=== PATIENT | female | born 1965 | race Caucasian/White ===

== ENCOUNTER → 2016-11-29 | Outpatient (CLI) | payer OTHER ==
--- NOTE | 2016-12-02 07:27 | MM ---
Reason for exam: history of breast cancer, mastectomy. Last mammogram was performed 1 year ago. History: Patient is postmenopausal and has history of breast cancer at age 46. Breast lift of the left breast, 2011. Reconstruction of the right breast, 2011. Chemotherapy, 2011. Radiation therapy, 2011. Mastectomy of the right breast, July 30, 2011. Taking antineoplastic for 4 years beginning at age 46. Physical Findings: Nurse did not find any significant physical abnormalities on exam. MG Diagnostic Mammo LT w CAD CC and MLO view(s) were taken of the left breast. Prior study comparison: November 27, 2015, left breast MG 3d diag mammo w/cad LT. November 25, 2014, left breast MG diagnostic mammo LT w CAD. The breast tissue is heterogeneously dense. This may lower the sensitivity of mammography. No suspicious calcifications are seen. No significant new findings when compared with previous films. These results were verbally communicated with the patient and result sheet given to the patient on 11/29/16. ASSESSMENT: Benign, BI-RAD 2 RECOMMENDATION: Follow-up diagnostic mammogram of the left breast in 1 year.
== END | disposition home or self-care (01) ==
LOC: RADMAMWWP 15:18
PROVIDERS: ATTEND Internal Medicine Hematology & Oncology
DX: Z08 Encounter for follow-up examination after completed treatment for malignant neoplasm (principal); Z85.3 Personal history of malignant neoplasm of breast

== ENCOUNTER → 2017-12-16 | Outpatient (CLI) | payer OTHER ==
--- NOTE | 2017-12-16 09:56 | MM ---
Reason for exam: additional evaluation requested from prior study. Last mammogram was performed 1 year and 1 month ago. History: Patient is postmenopausal and has history of breast cancer at age 46. Breast lift of the left breast, 2011. Reconstruction of the right breast, 2011. Chemotherapy, 2011. Radiation therapy, 2011. Mastectomy of the right breast, July 30, 2011. Took antineoplastic for 5 years beginning at age 46. Physical Findings: Nurse did not find any significant physical abnormalities on exam. MG Diagnostic Mammo LT w CAD CC, MLO, spot compression CC, and ML view(s) were taken of the left breast. Prior study comparison: November 29, 2016, left breast MG diagnostic mammo LT w CAD. November 27, 2015, left breast MG 3d diag mammo w/cad LT. The breast tissue is extremely dense which could obscure a lesion on mammography. Focal asymmetry disperses with compression. No significant new findings when compared with previous films. These results were verbally communicated with the patient and result sheet given to the patient on 12/16/17. ASSESSMENT: Benign, BI-RAD 2 RECOMMENDATION: Routine screening mammogram of the left breast in 1 year.
--- NOTE | 2017-12-16 22:41 | BD ---
EXAMINATION TYPE: MG DEXA axial skeleton. DATE OF EXAM: 12/16/2017 COMPARISON: NONE CLINICAL HISTORY: 52-year-old female postmenopausal screening with HRT Height: 66 IN Weight: 144 LBS FRAX RISK QUESTIONS: Alcohol (3 or more units per day): NO Family History (Parent hip fracture): NO Glucocorticoids (More than 3mos): NO (Ex: prednisone, prednisolone, methylprednisolone, dexamethasone, and hydrocortisone). History of Fracture in Adulthood: NO Secondary Osteoporosis: 1. Type 1 Diabetes: NO 2. Hyperthyroidism: NO 3. Menopause before 45: NO 4. Malnutrition: NO 5. Chronic liver disease: NO Rheumatoid Arthritis: NO Current Tobacco Use: YES RISK FACTORS HISTORY OF: History of Wrist Fracture: ANNE When: EARLY TWENTIES Active: YES Postmenopausal woman: AGE 47 MEDICATIONS: Additional Medications: VIT D3, XANAX, LETROZOLE Additional History: BREAST CANCER WITH CHEMO AND RADIATION EXAM MEASUREMENTS: Bone mineral densitometry was performed using the [employer] System. Bone mineral density as measured about the Lumbar spine is: ----- L1-L4(G/cm2): 0.975 T Score Values are as follows: ----- L2: -1.8 ----- L3: -1.2 ----- L4: -2.1 ----- L1-L4: -1.7 Bone mineral density BASELINE Bone mineral density about the R hip (g/cm2): 0.826 Bone mineral density about the L hip (g/cm2): 0.797 T Score values are as follows: -----R Neck: -1.5 -----L Neck: -1.7 -----R Total: -1.6 -----L Total: -1.7 Bone mineral density BASELINE IMPRESSION: Osteopenia (T Score between -2.5 and -1). There is slightly increased risk of fracture and the patient may be considered for treatment. Re-Screen 2-5 years. NOTE: T-SCORE=SD OF THE YOUNG ADULT MEAN.
== END | disposition home or self-care (01) ==
LOC: RADBDWWP 07:56
PROVIDERS: ATTEND Internal Medicine Hematology & Oncology
DX: Z08 Encounter for follow-up examination after completed treatment for malignant neoplasm (principal); M85.80 Other specified disorders of bone density and structure, unspecified site; N95.1 Menopausal and female climacteric states; Z85.3 Personal history of malignant neoplasm of breast
CPT/HCPCS: 77065; 77080

== ENCOUNTER → 2018-12-17 | Outpatient (CLI) | payer BC ==
--- NOTE | 2018-12-17 14:50 | MM ---
Reason for exam: additional evaluation requested from prior study. Last mammogram was performed 1 year ago. History: Patient is postmenopausal and has history of breast cancer at age 46. Breast lift of the left breast, 2011. Reconstruction of the right breast, 2011. Chemotherapy, 2011. Radiation therapy, 2011. Mastectomy of the right breast, July 30, 2011. Took antineoplastic for 5 years beginning at age 46. Physical Findings: Nurse did not find any significant physical abnormalities on exam. MG Diagnostic Mammo LT w CAD CC and MLO view(s) were taken of the left breast. Prior study comparison: December 16, 2017, left breast MG diagnostic mammo LT w CAD. November 29, 2016, left breast MG diagnostic mammo LT w CAD. The breast tissue is heterogeneously dense. This may lower the sensitivity of mammography. There are benign appearing round calcifications in the left breast. There is no discrete abnormality. These results were verbally communicated with the patient and result sheet given to the patient on 12/17/18. ASSESSMENT: Benign, BI-RAD 2 RECOMMENDATION: Follow-up diagnostic mammogram of the left breast in 1 year.
--- NOTE | 2018-12-17 15:46 | BD ---
EXAMINATION TYPE: Axial Bone Density DATE OF EXAM: 12/17/2018 COMPARISON: DEXA bone scan 2017 CLINICAL HISTORY: Postmenopausal female Height: 66 Weight: 139.1 FRAX RISK QUESTIONS: Alcohol (3 or more units per day): no Family History (Parent hip fracture): no Glucocorticoids (More than 3mos): no (Ex: prednisone, prednisolone, methylprednisolone, dexamethasone, and hydrocortisone). History of Fracture in Adulthood: yes Secondary Osteoporosis: 1. Type 1 Diabetes: no 2. Hyperthyroidism: no 3. Menopause before 45: yes 4. Malnutrition: no 5. Chronic liver disease: no Rheumatoid Arthritis: no Current Tobacco Use: yes RISK FACTORS HISTORY OF: Family History of Osteoporosis: no Active: yes Diet low in dairy products/other sources of calcium: yes Postmenopausal woman: age 46 Lost more than 2 inches in height since high school: no MEDICATIONS: xanax, narco, letrozole Additional History: pt had breast cancer at age 46/ chemo-radiation EXAM MEASUREMENTS: Bone mineral densitometry was performed using the [employer] System. Bone mineral density as measured about the Lumbar spine is: ----- L1-L4(G/cm2): 0.945 T Score Values are as follows: ----- L2: -2.0 ----- L3: -1.7 ----- L4: -2.2 ----- L1-L4: -2.0 Bone mineral density has: decreased -3.5 % since study of: 12.16.2017 Bone mineral density about the R hip (g/cm2): 0.746 Bone mineral density about the L hip (g/cm2): 0.791 T Score values are as follows: -----R Neck: -2.1 -----L Neck: -1.8 -----R Total: -2.0 -----L Total: -1.7 Bone mineral density has: decreased -3.9 % since study of: 12.16.2017 IMPRESSION: Osteopenia (T Score between -2.5 and -1) remains present low back and both hips.. There remains slightly increased risk of fracture and the patient may be considered for treatment. Re-Screen 2-5 years. NOTE: T-SCORE=SD OF THE YOUNG ADULT MEAN.
== END | disposition home or self-care (01) ==
LOC: RADMAMWWP 13:19
PROVIDERS: ATTEND Internal Medicine Hematology & Oncology
DX: Z08 Encounter for follow-up examination after completed treatment for malignant neoplasm (principal); M85.852 Other specified disorders of bone density and structure, left thigh; M85.851 Other specified disorders of bone density and structure, right thigh; M85.88 Other specified disorders of bone density and structure, other site; Z85.3 Personal history of malignant neoplasm of breast; Z90.11 Acquired absence of right breast and nipple
CPT/HCPCS: 77065; 77080

== ENCOUNTER → 2020-04-12 | Outpatient (CLI) | payer MEDICARE ==
--- NOTE | 2020-04-12 13:52 | MM ---
Reason for exam: additional evaluation requested from prior study. Last mammogram was performed 1 year and 4 months ago. History: Patient is postmenopausal and has history of breast cancer at age 46. Implant in the right breast, 2011. Breast lift of the left breast, 2011. Reconstruction of the right breast, 2011. Chemotherapy, 2011. Radiation therapy, 2011. Mastectomy of the right breast, July 30, 2011. Taking antineoplastic for 5 years beginning at age 46. Physical Findings: Nurse did not find any significant physical abnormalities on exam. MG Diagnostic Mammo LT w CAD CC and MLO view(s) were taken of the left breast. Prior study comparison: December 17, 2018, left breast MG diagnostic mammo LT w CAD. December 16, 2017, left breast MG diagnostic mammo LT w CAD. The breast tissue is heterogeneously dense. This may lower the sensitivity of mammography. No significant new findings when compared with previous films. These results were verbally communicated with the patient and result sheet given to the patient on 04/12/20. ASSESSMENT: Benign, BI-RAD 2 RECOMMENDATION: Follow-up diagnostic mammogram of the left breast in 1 year.
== END | disposition home or self-care (01) ==
LOC: RADMAMWWP 12:36
PROVIDERS: ATTEND Internal Medicine Hematology & Oncology
DX: Z08 Encounter for follow-up examination after completed treatment for malignant neoplasm (principal); Z85.3 Personal history of malignant neoplasm of breast
CPT/HCPCS: 77065

== ENCOUNTER → 2021-05-14 | Outpatient (CLI) | payer MEDICARE ==
--- NOTE | 2021-05-15 14:38 | MM ---
Reason for exam: additional evaluation requested from prior study. Last mammogram was performed 1 year and 1 month ago. History: Patient is postmenopausal and has history of breast cancer at age 46. Implant in the right breast, 2011. Breast lift of the left breast, 2011. Reconstruction of the right breast, 2011. Chemotherapy, 2011. Radiation therapy, 2011. Mastectomy of the right breast, July 30, 2011. Taking antineoplastic for 5 years beginning at age 46. Physical Findings: Nurse did not find any significant physical abnormalities on exam. MG Diagnostic Mammo LT w CAD CC and MLO view(s) were taken of the left breast. Prior study comparison: April 12, 2020, left breast MG diagnostic mammo LT w CAD. December 17, 2018, left breast MG diagnostic mammo LT w CAD. The breast tissue is extremely dense which could obscure a lesion on mammography. No significant new findings when compared with previous films. These results were verbally communicated with the patient and result sheet given to the patient on 05/14/21. ASSESSMENT: Benign, BI-RAD 2 RECOMMENDATION: Follow-up diagnostic mammogram of the left breast in 1 year.
== END | disposition home or self-care (01) ==
LOC: RADMAMWWP 14:35
PROVIDERS: ATTEND Internal Medicine Hematology & Oncology
DX: Z08 Encounter for follow-up examination after completed treatment for malignant neoplasm (principal); Z85.3 Personal history of malignant neoplasm of breast
CPT/HCPCS: 77065

== ENCOUNTER → 2021-07-30 | Outpatient (CLI) | payer BC ==
--- NOTE | 2021-07-30 12:46 | XR ---
EXAMINATION TYPE: XR foot complete RT DATE OF EXAM: 07/30/2021 COMPARISON: None HISTORY: Right foot pain TECHNIQUE: 3 view right foot FINDINGS: No acute fractures or dislocations are evident. Joint spaces are preserved. Alignment appea rs normal. Soft tissues are unremarkable. Follow up exams can be performed 7-10 days from acute trauma for continued pain IMPRESSION: 1. No acute osseous abnormality.
== END | disposition home or self-care (01) ==
LOC: RADXRYALE 11:17
PROVIDERS: ATTEND Internal Medicine
DX: M79.671 Pain in right foot (principal)

== ENCOUNTER → 2022-03-12 | Outpatient (CLI) | payer BC ==
--- NOTE | 2022-03-12 12:29 | XR ---
EXAMINATION TYPE: XR lumbosacral spine min 4V DATE OF EXAM: 03/12/2022 COMPARISON: CT dated 02/21/2010 INDICATION: Low back pain TECHNIQUE: 5 views of the lumbar spine. FINDINGS: Diffuse osteopenia. Anterolisthesis of L1 over L2 and L2 over L3. No definite vertebral body collapse or acute displaced fracture. Tiny multilevel opposing endplate osteophytosis denoting degenerative changes. Slightly degenerated L 5-S1 disc. Mild degenerative changes of the left sacroiliac joint. Arterial atherosclerotic calcifications. IMPRESSION: Degenerative changes as noted above. Further MRI assessment can be considered.
== END | disposition home or self-care (01) ==
LOC: RADXRYALE 11:27
PROVIDERS: ATTEND Internal Medicine
DX: M51.36 Other intervertebral disc degeneration, lumbar region (principal)
CPT/HCPCS: 72110

== ENCOUNTER 2022-03-13 10:00 | Emergency (ER) | payer BC ==
[2022-03-13 10:04] VITALS: TEMP 98.1
[2022-03-13] MEDS ORDERED: MORPHINE SULFATE 2 MG/ML SYRINGE IM STA (10:09)
--- NOTE | 2022-03-13 10:09 | ED ---
General Adult HPI <James Caal Madyson - Last Filed: 03/13/22 12:34> - General Source: patient, RN notes reviewed Mode of arrival: ambulatory Limitations: no limitations <Gwen Jeter - Last Filed: 03/13/22 13:01> - General Chief complaint: Extremity Injury, Upper Stated complaint: rt wrist injury Time Seen by Provider: 03/13/22 10:05 - History of Present Illness Initial comments: Patient is a 56-year-old female presents to the emergency room after she fell and landed on her wrist while outside with her dog this morning. She reports significant pain and inability to move her wrist since the injury. She denies any numbness or tingling in her digits. She has rings on her index and r ing finger which are typically tight but significantly tighter at this time she is having difficulty removing. She has a past medical history significant for breast cancer 10 years ago now in remission and osteopenia. She is on [place] at home for arthritis as needed. She denies any other complaints or concerns at this time. (Gwen Jeter) - Related Data Previous Rx's Medication Instructions Recorded Ibuprofen [Motrin] 600 mg PO Q8HR PRN #30 tab 03/13/22 Allergies Allergy/AdvReac Type Severity Reaction Status Date / Time ketamine AdvReac Hallucinati Verified 03/13/22 12:53 ons Review of Systems ROS Other: All systems not noted in ROS Statement are negative. <ShirazmerrittJames Madyson - Last Filed: 03/13/22 12:34> ROS Other: All systems not noted in ROS Statement are negative. <Gwen Jeter - Last Filed: 03/13/22 13:01> ROS Statement: Those systems with pertinent positive or pertinent negative responses have been documented in the HPI. Past Medical History Past Medical History: No Reported History Additional Past Medical History / Comment(s): Breast CA. History of Any Multi-Drug Resistant Organisms: None Reported Past Surgical History: Orthopedic Surgery Additional Past Surgical History / Comment(s): Breast Past Psychological History: No Psychological Hx Reported Smoking Status: Current every day smoker Past Alcohol Use History: None Reported Past Drug Use History: Marijuana <Gwen Jeter - Last Filed: 03/13/22 13:01> General Exam Limitations: no limitations General appearance: alert, in no apparent distress Head exam: Present: atraumatic, normocephalic, normal inspection Eye exam: Present: normal appearance, PERRL, EOMI. Absent: scleral icterus, conjunctival injection, periorbital swelling Right Forearm Wrist exam: Present: tenderness, swelling, ecchymosis, deformity, dislocation, tenderness over anatomical snuff box. Absent: full ROM Neurosensory exam: Present: radial nerve intact, ulnar nerve intact, median nerve intact Vascular: Present: normal capillary refill. Absent: vascular compromise Neurological exam: Present: alert, oriented X3, CN II-XII intact Psychiatric exam: Present: normal affect, normal mood Skin exam: Present: warm, dry, intact, normal color. Absent: rash <Gwen Jeter - Last Filed: 03/13/22 13:01> Course Vital Signs 03/13/22 03/13/22 03/13/22 10:01 11:57 12:18 Temperature 98.1 F Pulse Rate 87 75 128 H Respiratory 18 22 Rate Blood Pressure 158/71 151/69 168/84 O2 Sat by Pulse 97 100 99 Oximetry 03/13/22 03/13/22 03/13/22 12:23 12:26 12:31 Temperature Pulse Rate 145 H 133 H 137 H Respiratory 22 22 20 Rate Blood Pressure 169/77 177/75 172/74 O2 Sat by Pulse 100 100 Oximetry 03/13/22 03/13/22 12:37 12:42 Temperature Pulse Rate 125 H 125 H Respiratory 20 20 Rate Blood Pressure 170/78 168/74 O2 Sat by Pulse 99 100 Oximetry Procedures - Orthopedic Fracture Reduction Fracture #1 Consent Obtained: written consent Side: right Fracture Reduction Location: radius Analgesia: procedural sedation Technique: direct manipulation Post Reduction X-rays Demonstrate: acceptable reduction Post-Reduction Neuro Exam: intact Post-Reduction Vascular Exam: intact Splint Applied: Yes Patient Tolerated Procedure: well - Procedural Sedation Procedural Sedation Start Time: 12:17 Procedural Sedation Stop Time: 13:00 Indications: fracture/dislocation reduction ASA Class: III Mallampati Airway Score: 2 Preparation: satellite project site monitor applied, pulse oximeter, capnometry used, supplemental O2 applied, suction/airway equipment at bedside, IV secured Ketamine: IV Ketamine Dose: 60 Complications: none Patient Tolerated Procedure: well <James Caal - Last Filed: 03/13/22 12:34> Medical Decision Making - Radiology Data Radiology results: report reviewed, image reviewed <Corona,Gwen - Last Filed: 03/13/22 13:01> - Medical Decision Making X-ray of the right wrist showed commuted impacted fracture of the distal radial metaphysis and into the distal radioulnar articulation as well as the ra diocarpal articulation. She underwent reduction under conscious sedation and tolerated the procedure overall well however she did have hallucinations noted from ketamine dose are resolved. Repeat right wrist x-ray showed improved alignment of distal radius fracture. (Gwen Jeter) Disposition <James Caal - Last Filed: 03/13/22 12:34> Is patient prescribed a controlled substance at d/c from ED?: No Time of Disposition: 13:00 <Gwen Jeter - Last Filed: 03/13/22 13:01> Clinical Impression: Fracture of wrist Disposition: HOME SELF-CARE Condition: Stable Instructions (If sedation given, give patient instructions): Arm Fracture in Adults (ED), Moderate Sedation (ED) Additional Instructions: Keep right arm elevated apply ice 4-6 times a day. Follow-up with orthopedic office soon. Please return to the Emergency Department if symptoms worsen or any other concerns. Prescriptions: Ibuprofen [Motrin] 600 mg PO Q8HR PRN #30 tab PRN Reason: Pain Referrals: Elaine Li MD [Primary Care Provider] - 1-2 days Clayton Pagan DO [Doctor of Osteopathic Medicine] - 1-2 days
--- NOTE | 2022-03-13 11:03 | XR ---
EXAMINATION TYPE: XR wrist complete RT DATE OF EXAM: 03/13/2022 COMPARISON: NONE INDICATION: Fall TECHNIQUE: 4 views of the right wrist FINDINGS: Comminuted impacted fracture of the distal radial metaphysis extending to the distal radioulnar artic ulation as well as the radiocarpal articulation. Multiple suspected bone fragments with dorsal angulation of the distal fracture fragment. Osteopenia. IMPRESSION: Fractured distal radius as detailed above, for orthopedic consultation.
[2022-03-13] MEDS ORDERED: MORPHINE SULFATE 4 MG/ML SYRINGE IVP STA (11:15)
[2022-03-13] MEDS ORDERED: KETOROLAC 15 MG/ML 1 ML VIAL IM STA (11:15)
[2022-03-13] MEDS ORDERED: KETAMINE 10 MG/ML 20 ML VIAL IV ONE (11:55)
[2022-03-13] MEDS ORDERED: MIDAZOLAM 1 MG/ML 5 ML VIAL IV STA (12:22)
--- NOTE | 2022-03-13 12:45 | XR ---
EXAMINATION TYPE: XR wrist limited RT DATE OF EXAM: 03/13/2022 COMPARISON: X-ray performed earlier same day INDICATION: Postreduction TECHNIQUE: 2 views of the right wrist. FINDINGS: Interval external fixation. Again noted is the distal comminuted radial fracture with element of impa ction and multiple bone fragments. Interval better alignment at the fracture site, with persistent dorsal angulation of the distal fract ure fragment. No definite new fracture identified. IMPRESSION: As above.
[2022-03-13 13:15] VITALS: RESP 20
[2022-03-13] MEDS ORDERED: ONDANSETRON ODT 4 MG TAB PO STA (13:38)
[2022-03-13 14:01] VITALS: BP 154/91; PULSE 81
== END 2022-03-13 14:01 | disposition home or self-care (01) ==
LOC: EC 10:00
DX: S52.591A Other fractures of lower end of right radius, initial encounter for closed fracture (principal); F17.200 Nicotine dependence, unspecified, uncomplicated; F12.90 Cannabis use, unspecified, uncomplicated; W19.XXXA Unspecified fall, initial encounter
CPT/HCPCS: 73100; 73110; 25605; 99283; 96374; 96372 ×2; J2270 ×2; J2250; J1885

== ENCOUNTER → 2022-03-18 | Outpatient (CLI) | payer BC ==
[2022-03-18 18:07] LABS: Basophils # (A) 0.06 X 10*3/uL (0.00-0.10); Eosinophils # (A) 0.16 X 10*3/uL (0.04-0.35); Eosinophils % (A) 2.6 %; HCT 40.1 % (37.2-46.3); HGB 12.8 g/dL (12.0-15.0); Immature Grans, Automated 0.2 %; Lymphocytes # (A) 2.29 X 10*3/uL (0.90-5.00); Lymphocytes % (A) 36.8 %; MCH 30.5 pg (27.0-32.0); MCHC 31.9 g/dL (32.0-37.0); MCV 95.7 fL (80.0-97.0); Monocytes # (A) 0.36 X 10*3/uL (0.20-1.00); Monocytes % (A) 5.8 %; NRBC Per 100 WBC 0 /100 WBCS (0.0-0.0); Neutrophils # (A) 3.34 X 10*3/uL (1.80-7.70); Neutrophils % (A) 53.6 %; Platelet Count 193 X 10*3/uL (140-440); RBC 4.19 X 10*6/uL (4.10-5.20); RDW 13.1 % (11.5-14.5); WBC 6.22 X 10*3/uL (4.50-10.00)
[2022-03-18 18:12] LABS: Anion Gap 9.5 mmol/L (10.00-18.00); Carbon Dioxide 27.5 mmol/L (20.0-27.5); Potassium 4.6 mmol/L (3.5-5.5)
== END | disposition home or self-care (01) ==
LOC: LABPAT 11:00
PROVIDERS: ATTEND Orthopaedic Surgery Hand Surgery
DX: Z01.812 Encounter for preprocedural laboratory examination (principal); S52.501A Unspecified fracture of the lower end of right radius, initial encounter for closed fracture; X58.XXXA Exposure to other specified factors, initial encounter
CPT/HCPCS: 80051; 85025

== ENCOUNTER 2022-03-20 13:04 | Day surgery (SDC) | payer BC ==
[2022-03-19 10:08] VITALS: BMI 20.5
--- NOTE | 2022-03-19 10:25 | P.HPOR ---
History of Present Illness H&P Date: 03/19/22 Chief Complaint: Right intra-articular distal radius fracture Subjective: This is a 57 year old female that presents today for initial evaluation regarding a right wrist injury that occurred on 03/13/22 when a dog leash got wrapped around her ankle causing her to fall onto an outstretched hand. She had immediate pain and deformity of the wrist and was seen in the ED where closed reduction and splinting was performed. She has been non-weight bearing and has been icing and elevating. She denies any previous injury to this wrist in the past. Physical Examination: RUE: AIN/PIN/Radial/Ulnar/Median motor intact. Radial/Ulnar/Median SILT. 2+/4 Radial/Ulnar pulses palpated. 5/5 APB, 5/5 FDI. TTP over dorsal distal radius with bruising swelling. Imaging: X-Rays of the right wrist demonstrate a intra-articular distal radius fracture with 45 degrees of dorsal angulation, extensive dorsal comminution. Impression: 1.) Right intra-articular distal radius fracture, displaced. Plan: Diagnosis and treatment options were discussed with the patient. Due to the amount of displacement and angulation I recommend surgical intervention consisting of right distal radius ORIF. Risks and benefits of surgery including bleeding, infection, damage to surrounding tissue, need for further surgery, residual numbness were discussed and the patient wished to go forward with surgery. She is placed in a new splint today and surgery will be scheduled in the outpatient setting in the near future, she is to be non-weight bearing and to rest, ice and elevate the right extremity. -Juan José Sanchez DO Orthopedic Hand/Upper Extremity Surgeon Past Medical History Past Medical History: Cancer, Osteoarthritis (OA) Additional Past Medical History / Comment(s): Breast cancer 2010, fx rt arm-fell 03/13/22-has splint History of Any Multi-Drug Resistant Organisms: None Reported Past Surgical History: Breast Surgery, Orthopedic Surgery Additional Past Surgical History / Comment(s): pins little finger rt hand/later removed, rt mastectomy Past Anesthesia/Blood Transfusion Reactions: Previous Problems w/ Anesthesia, Postoperative Nausea & Vomiting (PONV) Additional Past Anesthesia/Blood Transfusion Reaction / Comment(s): ketamine caused hallucinations Smoking Status: Current every day smoker - Past Family History Mother Family Medical History: No Reported History Medications and Allergies Home Medications Medication Instructions Recorded Confirmed Type Ibuprofen [Motrin] 600 mg PO Q8HR PRN #30 tab 03/13/22 03/19/22 Rx HYDROcodone/APAP 7.5-325MG [[place] 1 tab PO DAILY PRN 03/19/22 03/19/22 History 7.5-325] Letrozole [Femara] 2.5 mg PO DAILY 03/19/22 03/19/22 History Xanax(Dose Unknown) 1 tab PO BID PRN 03/19/22 03/19/22 History Allergies Allergy/AdvReac Type Severity Reaction Status Date / Time ketamine AdvReac Hallucinati Verified 03/19/22 09:58 ons Physical Examination Osteopathic Statement: *. No significant issues noted on an osteopathic structural exam other than those noted in the History and Physical/Consult.
[~2022-03-20 13:04] MED LIST: DEXAMETHASONE SOD PHOSPHATE 4 MG/ML 1 ML VIAL IV ONE; HYDROmorphone 0.5 MG/0.5 ML SYRINGE IVP PRN; LACTATED RINGERS 1,000 ML IV SCH; LIDOCAINE 1% (10MG/ML) FOR IV START INTRADERMA PRN; ONDANSETRON 4 MG/2 ML VIAL IVP ONE; SCOPOLAMINE 1 MG/72 HR PATCH TRANSDERM ONE
[2022-03-20 13:38] VITALS: TEMP 99.2
[2022-03-20] MEDS ORDERED: LACTATED RINGERS 1,000 ML IV ONE (13:41)
[2022-03-20] MEDS ORDERED: MIDAZOLAM 2 MG/2 ML VIAL IVP ONE (13:49)
[2022-03-20] MEDS ORDERED: fentaNYL (PF) 50 MCG/ML 2 ML AMP IVP ONE (13:50)
[2022-03-20 14:10] VITALS: RESP 16
--- NOTE | 2022-03-20 14:38 | P.ANPRN ---
Procedure Note - Anesthesia - Nerve Block Performed Right Axillary Single Time Out Performed: Yes ([id number]) Date of Procedure: 03/20/22 Procedure Start Time: 13:50 Procedure Stop Time: 13:57 Location of Patient: PreOp Indication: Acute Post-Operative Pain, Requested by Surgeon Specifically requested for management of pain by DrTayler: Juan José Sanchez Sedation Type: Sedate with meaningful contact maintained Preparation: Sterile Prep Position: Supine Catheter: None Needle Types: P[place]unk Needle Gauge: 21 Ultrasound used to visualize needle placement: Yes Ultrasound used to observe medication spread: Yes Injectate: 0.5% Ropivacaine (see comment for volume) (30cc + 10cc nacl pf. equal portions at each median ulnar radial and msklcut) Blood Aspirated: No Pain Paresthesia on Injection Noted: No Resistance on Injection: Normal Image Stored and Saved: Yes Events: Uneventful and Well Tolerated
[2022-03-20] MEDS ORDERED: MIDAZOLAM 2 MG/2 ML VIAL ONE (16:51)
[2022-03-20] MEDS ORDERED: LIDOCAINE 2% INJ 20 MG/ML (2 ML VIAL) ONE (16:51)
[2022-03-20] MEDS ORDERED: SODIUM CHLORIDE 0.9% (PF) 10 ML VIAL ONE (16:51)
[2022-03-20] MEDS ORDERED: PROPOFOL 10 MG/ML 20 ML VIAL IV ONE (16:51)
[2022-03-20] MEDS ORDERED: fentaNYL (PF) 50 MCG/ML 2 ML AMP ONE (16:51)
[2022-03-20] MEDS ORDERED: ROPIVACAINE 5 MG/ML 30 ML VIAL ONE (16:51)
[2022-03-20] MEDS ORDERED: ePHEDrine 50 MG/ML 1 ML VIAL ONE (16:51)
[2022-03-20 19:27] VITALS: BP 122/57; PULSE 96
--- NOTE | 2022-03-21 07:08 | P.OP ---
Date of Procedure: 03/20/22 Preoperative Diagnosis: 1.) Right intra-articular distal radius fracture Postoperative Diagnosis: Right intra-articular distal radius fracture Procedure(s) Performed: ORIF of right intra-articular distal radius fracture, 3 parts. Implants: Tamia/Biomet DVR Crosslock volar distal radius plate, short/narrow Anesthesia: regional Surgeon: Juan José Sanchez Estimated Blood Loss (ml): 5 Pathology: none sent Condition: stable Disposition: PACU Description of Procedure: This is a 57 year old female who sustained a displaced intra-articular distal radius fracture and presents today for open reduction internal fixation of their right distal radius fracture . Risks and benefits of surgery were discussed with the patient including bleeding, damage to surrounding tissue, infection, need for further surgery as well as risks of anesthesia including pulmonary em bolism and even and the patient wished to proceed with surgical intervention. The patients was seen in the pre-operative area by myself. Consent and H&P were completed and updated. The correct extremity was marked in the pre- operative area by myself and all other questions were answered. Operative Narrative: The patient was brought to the operating room by the department of anesthesia. They remained on the portable stretcher and a rolling hand table was brought to the side of the operative extremity. Pre-operative time out was performed indicating the correct patient, procedure and laterality. All in the room agreed. Pre-operative antibiotics were given prior to skin incision. The patient was then drifted off to sleep by the department of anesthesia. A no nsterile tourniquet was then applied to the operative extremity and the right upper extremity was then prepped and draped in normal sterile fashion. The operative extremity was the exsanguinated with an esmarch bandage and the tourniquet was inflated to 250mmHg. A longitudinal incision centered over the FCR tendon was made with a 15-blade scalpel. Blunt dissection was taken down to the FCR tendon sheath using Bovie cautery for meticulous hemostasis. The FCR sheath was opened with tenotomy scissors. The floor of the FCR sheath was then incised with a 15-blade scalpel and the FPL tendon and muscle belly was swept bluntly in an ulnar direction to reveal the pronator quadratus. Pronator quadratus was sharply incised with a 15-blade scalpel along the radial border of the distal radius, coming across transversely parallel to the joint at the level of the watershed line, radial artery was identified and protected. Periosteal elevator was then used to elevate the pronator quadratus off the distal radius from a radial to ulnar fashion. A [place] elevator was used to lever the distal piece back into place and free up the fractured fragments. A short/narrow width Tamia/biomet crossl ock DVR plate was chosen to fit the patients anatomy best. This was placed on the distal radius under direct visualization and the K- wire was placed in the shaft k-wire hole. The fracture was then reduced to the plate distally and a k- wire was placed in the ulnar most k-wire hole in the proximal row. Fluoroscopy was then utilized to confirm correct placement of plate in the radial/ulnar plane and distal k-wire placement was confirmed to be proximal to the subchondral bone on 20 degree elevated lateral view confirming extra-articular screw placement. Religion of radial height, inclination and volar tilt was achieved. The oblong hole was drilled and filled with a cortical screw. The proximal row and radial styloid screw hole was then drilled and filled from ulnar to radial with locking screws. Distal row was then drilled and filled with locking smooth pegs. Attention was then brought to the proximal shaft screws. Proximal crosslocking shaft screws were drilled with a nonlocking screws. The wrist joint was the ranged and full smooth flexion/extension with no crepitus appreciated. Final imaging was taken confirming extra-articular placement of distal screws at DRUJ and radiocarpal joint. The wound was then irrigated. Subcutaneous closure was performed with 3-0 vicryl followed by skin closure with 4-0 nylon suture. Sterile dressing consisting of adaptic,, 4x4s, and a volar plaster splint was applied. Tourniquet was let down and the hand had immediate perfusion. The patient was then woken by the department of anesthesia and transferred to PACU in stable condition. The patient was then woken by the department of anesthesia and transferred to PACU in stable condition. Al BOOTH was present for the case and assisted in major portions of the operation and hardware placement. Juan José Sanchez D.O. Orthopedic Hand/Upper Extremity Surgeon
== END 2022-03-20 19:25 | disposition home or self-care (01) ==
LOC: OR 13:04
PROVIDERS: ATTEND Orthopaedic Surgery Hand Surgery
DX: S52.571A Other intraarticular fracture of lower end of right radius, initial encounter for closed fracture (principal); W19.XXXA Unspecified fall, initial encounter; Z85.3 Personal history of malignant neoplasm of breast; M19.90 Unspecified osteoarthritis, unspecified site; Z88.4 Allergy status to anesthetic agent; F17.210 Nicotine dependence, cigarettes, uncomplicated; Z79.899 Other long term (current) drug therapy
CPT/HCPCS: 64415; 76942; 93005; 25609; C1713 ×2; J2250; J1100; J0690; J2405; J3010; J2795; J2704; J2001

== ENCOUNTER → 2022-09-17 | Outpatient (CLI) | payer BC ==
--- NOTE | 2022-09-18 11:05 | MM ---
Reason for Exam: Screening (asymptomatic). Last mammogram was performed 1 year(s) and 4 month(s) ago. Patient History: Menarche at age 16. First Full-Term at age 27. Postmenopausal. Breast cancer, left, age 46. 07/30/2011, Mastectomy on the Right side. 2011, Chemotherapy. 2011, Radiation Therapy. 2011, Implant on the right side. 2011, Implant on the right side. Prior Study Comparison: 12/17/2018 Left Diagnostic Mammogram, [facility]. 04/12/2020 Left Diagnostic Mammogram, [facility]. 05/14/2021 Left Diagnostic Mammogram, [facility]. Tissue Density: Left: The breast tissue is heterogeneously dense. This may lower the sensitivity of mammography. Findings: Analyzed By CAD. There are a few small benign round Calcifications redemonstrated throughout the left breast. There is no suspicious group of microcalcifications or new suspicious mass in the left breast. Overall Assessment: Benign, BI-RAD 2 Management: Screening Mammogram of the left breast in 1 year. Some advise ultrasound surveillance in patients with background dense tissue. A clinical breast exam by your physician is recommended on an annual basis and results should be correlated with mammographic findings. Electronically signed and approved by: Buster Acuña M.D.
== END | disposition home or self-care (01) ==
LOC: RADMAMWWP 10:23
PROVIDERS: ATTEND Internal Medicine Hematology & Oncology
DX: Z12.31 Encounter for screening mammogram for malignant neoplasm of breast (principal); Z78.0 Asymptomatic menopausal state; Z90.11 Acquired absence of right breast and nipple
CPT/HCPCS: 77067

== ENCOUNTER → 2023-11-03 | Outpatient (CLI) | payer BC ==
--- NOTE | 2023-11-03 21:54 | MM ---
Reason for Exam: Screening (asymptomatic). Last mammogram was performed 1 year(s) and 1 month(s) ago. Patient History: Menarche at age 16. First Full-Term at age 27. Postmenopausal. Breast cancer, left, age 46. 07/30/2011, Mastectomy on the Right side. 2011, Chemotherapy. 2011, Radiation Therapy. 2011, Implant on the right side. 2011, Implant on the right side. Prior Study Comparison: 04/12/2020 Left Diagnostic Mammogram, [facility]. 05/14/2021 Left Diagnostic Mammogram, [facility]. 09/17/2022 Left MG screen veda unilateral w/cad, [facility]. Tissue Density: Left: The breast tissue is extremely dense which could obscure a lesion on mammography. Findings: Analyzed By CAD. Pattern is stable Benign calcifications within the left breast. No suspicious groups of microcalcifications, spiculated or lobular masses, architectural distortion or other secondary signs of malignancy are mammographically apparent. Overall Assessment: Benign, BI-RAD 2 Management: Screening Mammogram of the left breast in 1 year. A negative mammogram report should not preclude additional follow up of suspicious palpable abnormalities. Patient should continue monthly self breast exam. A clinical breast exam by your physician is recommended on an annual basis and results should be correlated with mammographic findings. Electronically signed and approved by: Reece Polk D.O. Radiologis
== END | disposition home or self-care (01) ==
LOC: RADMAMWWP 12:56
PROVIDERS: ATTEND Internal Medicine Hematology & Oncology
DX: Z12.31 Encounter for screening mammogram for malignant neoplasm of breast (principal); C50.919 Malignant neoplasm of unspecified site of unspecified female breast; F41.9 Anxiety disorder, unspecified; H33.009 Unspecified retinal detachment with retinal break, unspecified eye; M85.9 Disorder of bone density and structure, unspecified
CPT/HCPCS: 77067

== ENCOUNTER → 2024-12-21 | Outpatient (CLI) | payer BC ==
--- NOTE | 2024-12-21 13:39 | MM ---
Reason for Exam: Screening (asymptomatic). Last mammogram was performed 1 year(s) and 2 month(s) ago. Patient History: Menarche at age 16. First Full-Term at age 27. Postmenopausal. Breast cancer, left, age 46. 07/30/2011, Mastectomy on the Right side. 2011, Chemotherapy. 2011, Radiation Therapy. 2011, Implant on the right side. 2011, Implant on the right side. Prior Study Comparison: 05/14/2021 Left Diagnostic Mammogram, [facility]. 09/17/2022 Left MG screen veda unilateral w/cad, [facility] 11/03/2023 Left MG screen veda unilateral w/cad, [facility]. Tissue Density: Left: The breasts are heterogeneously dense, which may obscure small masses. Findings: Analyzed By CAD. A few small benign-appearing round calcifications throughout the left breast are redemonstrated. There is no suspicious new group of microcalcifications or new suspicious mass in the left breast. Overall Assessment: Benign, BI-RAD 2 Management: Screening Mammogram of the left breast in 1 year. . Patient should continue monthly self-breast exams. A clinical breast exam by your physician is recommended on an annual basis. This exam should not preclude additional follow-up of suspicious palpable abnormalities. Note on Haley scores and lifetime risk: 1. A Haley score greater than 3% is considered moderate risk. If this is the case, consider specialist referral to assess eligibility for a risk reducing agent. 2. If overall lifetime risk for the development of breast cancer is 20% or higher, the patient may qualify for future screening with alternating mammogram and breast MRI. [facility], , 12/21/2024 1:36 PM. Electronically signed and approved by: Buster Acuña M.D.
== END | disposition home or self-care (01) ==
LOC: RADMAMWWP 13:00
PROVIDERS: ATTEND Internal Medicine Hematology & Oncology
DX: Z12.31 Encounter for screening mammogram for malignant neoplasm of breast (principal); R92.333 Mammographic heterogeneous density, bilateral breasts; Z78.0 Asymptomatic menopausal state; Z85.3 Personal history of malignant neoplasm of breast
CPT/HCPCS: 77067